=== PATIENT | male | born 1990 | race Caucasian/White ===

== ENCOUNTER 2017-05-29 17:25 | Emergency (ER) | payer BC, OTHER ==
[~2017-05-29] VITALS: Ht 182.9 cm; Wt 108.9 kg
[2017-05-29 17:25] VITALS: BP_SYST 148
--- NOTE | 2017-05-29 17:25 | NUR ---
Patient triaged and placed in waiting room. VSS and patient appears in no acute distress at this time. Accompanied by SELF, awaiting available bed, and MD notified of need for MSE.
[2017-05-29 18:03] LABS: BASOPHILS # (AUTO) 0.1 K/uL (0.0-0.2); EOSINOPHILS # (AUTO) 0.2 K/uL (0.0-0.4); EOSINOPHILS % (AUTO) 3.2 % (0.0-4.0); HEMATOCRIT 47.5 % (36-54); HEMOGLOBIN 15.3 g/dL (14.0-18.0); LYMPHOCYTES # (AUTO) 2.3 K/uL (1.0-5.5); LYMPHOCYTES % (AUTO) 34.7 % (20.5-51.5); MEAN CORPUSCULAR HEMOGLOBIN 28 pg (27-31); MEAN CORPUSCULAR HGB CONC 32 % (32-36); MEAN CORPUSCULAR VOLUME 86 fL (79.0-98.0); MONOCYTES # (AUTO) 0.4 K/uL (0.0-1.0); MONOCYTES % (AUTO) 6.5 % (1.7-9.3); NEUTROPHILS # (AUTO) 3.7 K/uL (1.8-7.7); NEUTROPHILS % (AUTO) 54.6 % (40.0-70.0); PLATELET COUNT (AUTO) 276 K/uL (130-430); RED BLOOD CELL COUNT(AUTO) 5.55 MIL/uL (4.2-6.2); RED CELL DISTRIBUTION WIDTH 13.1 % (9.0-15.0); WHITE BLOOD COUNT (AUTO) 6.7 K/uL (4.8-10.8)
[2017-05-29 18:12] LABS: BILIRUBIN,URINE NEGATIVE (NEGATIVE); BLOOD, URINE NEGATIVE (NEGATIVE); CLARITY/URINE CLEAR (CLEAR); COLOR,URINE YELLOW (YELLOW); GLUCOSE,URINE NEGATIVE (NEGATIVE); KETONES,URINE NEGATIVE (NEGATIVE); LEUKOCYTE ESTERASE ,URINE NEGATIVE (NEGATIVE); NITRITE, URINE NEGATIVE (NEGATIVE); PH,URINE 7.5 (5.0-8.0); PROTEIN URINE NEGATIVE (NEGATIVE); UROBILINOGEN,URINE 0.2 (0.2-1.0)
[2017-05-29 18:23] LABS: CALCIUM 9.5 mg/dL (8.4-11.0); CREATININE 1.11 mg/dL (0.55-1.30); POTASSIUM 3.6 mmol/L (3.5-5.1)
[2017-05-29 18:24] LABS: PROTHROMBIN TIME 9.9 SECS (9.5-12.5)
[2017-05-29 18:28] LABS: ALBUMIN 4.4 g/dL (3.4-4.8); TOTAL BILIRUBIN 0.1 mg/dL (0.0-1.0)
--- NOTE | 2017-05-29 18:57 | NUR ---
Pt ambulatory to bed 7
--- NOTE | 2017-05-29 19:05 | NUR ---
Patient AAO x 4, sitting in bed c/o rlq umbilical pain 2/10 right now. No acute distress noted. Patient states he's had fever and nausea. Denies diarrhea. Will continue to monitor.
--- NOTE | 2017-05-29 19:10 | NUR ---
ER at bedside examining patient.
[2017-05-29] MEDS ORDERED: NACL 0.9% 1,000 ML IV ONE (19:30)
[2017-05-29] MEDS ORDERED: IOHEXOL 100 ML IV ONE (20:55)
[2017-05-29 21:36] VITALS: BP_SYST 125
--- NOTE | 2017-05-29 21:36 | NUR ---
Patient given written and verbal discharge instructions and verbalizes understanding. ER MD discussed with patient the results and treatment provided. Patient in stable condition. ID arm band removed. No Rx given. Patient educated on pain management and to follow up with PMD. Pain Scale 0/10. Opportunity for questions provided and answered.
== END 2017-05-29 21:36 | disposition home or self-care (01) ==
LOC: SED 17:25
DX: R10.11 Right upper quadrant pain (principal)
CPT/HCPCS: 36415; 74177; 80053; 81003; 83690; 85025; 85610; 85730; 96360; 99285; J7030; Q9967